=== PATIENT | male | born 1995 | race Caucasian/White ===

== ENCOUNTER → 2018-10-14 | Outpatient (CLI) | payer BC, OTHER | LOC: COL.RAD 13:15 → EDSEX 13:15 → COL.RAD 13:28 | DX: S43.492A Other sprain of left shoulder joint, initial encounter (principal) | CPT/HCPCS: A9585; Q9967 ==

== ENCOUNTER → 2018-10-18 | Outpatient (CLI) | payer BC, OTHER | LOC: COL.RAD 14:29 → EDSEX 14:45 | DX: G62.9 Polyneuropathy, unspecified (principal); J34.89 Other specified disorders of nose and nasal sinuses | CPT/HCPCS: A9585 ==

== ENCOUNTER → 2019-09-20 | Outpatient (CLI) | payer BC, OTHER | LOC: COL.RAD 09-19 13:15 | DX: M25.511 Pain in right shoulder (principal); Y93.61 Activity, american tackle football | CPT/HCPCS: A9585; Q9967 ==